=== PATIENT | male | born 1945 | race Caucasian/White ===

== ENCOUNTER → 2023-07-01 09:49 | Outpatient (CLI) | payer MEDICARE, SELFPAY | LOC: RESP 09:53 | PROVIDERS: PCP Registered Nurse; Referring Provider Internal Medicine Cardiovascular Disease; Visit Provider Internal Medicine Cardiovascular Disease | DX: R06.02 Shortness of breath (principal); Z87.891 Personal history of nicotine dependence; J98.8 Other specified respiratory disorders | CPT/HCPCS: 94060; 94726; 94729 ==

== ENCOUNTER → 2023-07-22 08:43 | Outpatient (CLI) | payer MEDICARE, SELFPAY ==
--- NOTE | 2023-07-22 08:44 | DI.NM.S_ITS ---
PROCEDURE: NM MARGARET PERF SPECT R&S PHARM Rest and pharmacological stress myocardial perfusion SPECT with gated imaging and ejection fraction RADIOPHARMACEUTICAL: 12.8 mCi Tc-99m tetrafosmin IV at rest and 26.0 mCi Tc-99m tetrafosmin IV at peak effect of pharmacological stress. [id number] was performed. INDICATIONS: Longstanding persistent atrial fibrillation TECHNIQUE: Radiopharmaceutical was injected at peak stress test, and also at rest. SPECT images were obtained. SPECT myocardial perfusion images were displayed in short axis, horizontal long axis, and vertical long axis views. Gated images were reviewed using RetAPPs software. COMPARISON: None. CARDIAC STRESS: A pharmacologic stress test was performed under the supervision of an attending staff, using an infusion of lexiscan 0.4mg IV X1. Hemodynamic data: There is normal blood pressure and heart rate response to pharmacologic stress. Symptoms: The patient denied anginal chest pain. Aminophylline: none EKG: Resting ECG showed rate controlled atrial fibrillation. No diagnostic changes of ischemia; no ectopy. FINDINGS: Raw data: There is good myocardial uptake of radiotracer. No significant motion artifacts. Left ventricle function: Gated images demonstrate normal left ventricular wall thickening. No segmental wall motion abnormalities. No transient ischemic dilation; TID is 0.91 (normal less than 1.3). Left ventricle resting end diastolic volume is 90 mL. Left ventricle stress ejection fraction is 61%; normal range is above 45%. Myocardial perfusion: There is a mildly to moderately intense fixed apical defect that mostly resolves with prone imaging, suggesting apical thinning artifact but old mild non-transmural can't be excluded. No ischemia. SSS 5, SRS 5. IMPRESSION: Low risk, probably normal pharm nuclear stress test. 1) There is a mildly to moderately intense fixed apical defect that mostly resolves with prone imaging, suggesting apical thinning artifact but old mild non-transmural can't be excluded. No ischemia. SSS 5, SRS 5. 2) Normal left ventricular size, wall motion, and systolic function (EF post stress 64%). 3) No diagnostic ST changes with lexiscan. 4) No angina during the study. 5) No prior nuclear stress test available for comparison. Dictated by: Jose Neely MD on 07/23/2023 at 16:58 Approved by: Jose Neely MD on 07/23/2023 at 17:01
--- NOTE | 2023-07-22 08:45 | DI.ECHO.S_ITS ---
[place] +---------+ [facility] +---------+ : : [address] : : : : [id number] : : : : Phone: [phone]+ Echocardiogram Report + + :Name: LIZZETTE RAO Study Date: 07/22/2023 Height: 69 in : :[facility] ReadingLocation: Weight: 220 lb : : Gender: Male BSA: 2.2 m2 : :: 1945 Age: 78 yrs BP: 157/104 mmHg: :Reason For Study: ATRIAL FIBRILLATION : :Ordering Physician: BIBI, : :BHANU Performed By: Que Boyer : :Referring: BHANU MTZ : + + Interpretation Summary The patient was in atrial fibrillation with heart rates between 72-128 bpm during the exam. The left ventricle is normal in size. Left ventricular ejection fraction is estimated to be 45 +/- 5%. There is mild global hypokinesis of the left ventricle. The right ventricle is normal in size and function.TAPSE: 1.8 cm There is mild to moderate mitral regurgitation. The aortic valve is mildly calcified. There is mildly reduced leaflet mobility. There is no hemodynamically significant valvular aortic stenosis. There is mild tricuspid regurgitation. The right ventricular systolic pressure is estimated to be at least 43 mmHg based on an estimated right atrial pressure of 8 mm Hg. In August 2011, sinus rhythm with preserved LV function without any significant valvular pathology. BP: 157/104 mmHg Procedure: A two-dimensional transthoracic echocardiogram with color flow and Doppler was performed. The study quality was technically adequate. Comparison is made with the echocardiogram of 09/03/2011. The patient was in atrial fibrillation with heart rates between 72-128 bpm during the exam. Left Ventricle: Left ventricular wall thickness is mildly increased. The left ventricle is normal in size. There is no thrombus. Left ventricular ejection fraction is estimated to be 45 +/- 5%. There is mild global hypokinesis of the left ventricle. Diastolic function could not be accurately assessed due to atrial fibrillation. E/E' med: 16.5. Right Ventricle: The right ventricle is normal in size and function. Atria: The left atrium is mildly dilated. Right atrial size is normal. The interatrial septum grossly appears intact with no obvious evidence for an atrial septal defect. Mitral Valve: There is mild mitral annular calcification. There is no mitral valve stenosis. There is mild to moderate mitral regurgitation. Aortic Valve: The aortic valve is trileaflet. The aortic valve is mildly calcified. There is mildly reduced leaflet mobility. There is no hemodynamically significant valvular aortic stenosis. No aortic regurgitation is present. Tricuspid Valve: The tricuspid valve is normal. There is no tricuspid stenosis. There is mild tricuspid regurgitation. The right ventricular systolic pressure is estimated to be at least 43 mmHg based on an estimated right atrial pressure of 8 mm Hg. Pulmonic Valve: The pulmonic valve is not well visualized. There is no pulmonic valvular stenosis. There is no pulmonic valvular regurgitation. Great Vessels: The aortic root is normal size. The dimensions of the ascending aorta are normal. The IVC is of normal diameter and collapses less than 50% with a sniff. This suggests a right atrial pressure of 8 mm Hg. Pericardium/ Pleura There is no pericardial effusion. There is no pleural effusion. MMode/2D Measurements & Calculations LVIDd: 3.9 cm LVOT diam: 2.2 cm LVIDs: 3.0 cm Ao root diam: 3.7 cm FS: 21.8 % asc Aorta Diam: 3.5 cm IVSd: 1.3 cm Ao Arch Diam (Prox Trans): 3.1 cm LVPWd: 1.1 cm LV abbott. diameter/BSA (cm/m^2): 1.8 LV sys. diameter/BSA (cm/m^2): 1.4 LA A2 area: 22.5 cm2 RA long axis: 4.6 cm LA A4 area: 25.7 cm2 RA area: 14.8 cm2 LA length (vol): 6.2 cm RA vol: 40.6 ml LA vol: 79.6 ml RA : 18.9 ml/m2 LA vol index: 37.0 ml/m2 IVC diam: 2.0 cm RVD1 (basal): 3.2 cm RVD2 (mid): 3.0 cm TAPSE: 1.8 cm Doppler Measurements & Calculations Ao V2 max: 141.4 cm/sec LVOT Max Lalo: 74.2 cm/sec Ao V2 mean: 94.7 cm/sec LV V1 max P.2 mmHg Ao max P.0 mmHg LV V1 VTI: 18.8 cm Ao mean P.1 mmHg JAG(I,D): 2.3 cm2 Ao V2 VTI: 30.7 cm JAG(V,D): 1.9 cm2 sev ratio: 0.61 JAG indexed to BSA (cm^2/m^2): 1.1 MV E max lalo: 90.2 cm/sec TR max lalo: 295.2 cm/sec MV A max lalo: 32.9 cm/sec TR max P.9 mmHg MV E/A: 2.7 PA V2 max: 81.2 cm/sec Med Peak E' Lalo: 5.5 cm/sec PA V2 mean: 55.2 cm/sec E/E' med: 16.5 PA mean P.4 mmHg Lat Peak E' Lalo: 7.0 cm/sec PA pr(Accel): 52.7 mmHg E/E' lat: 13.0 E/e' average: 14.7 MV dec time: 0.14 sec SV(LVOT): 69.7 ml Reading Physician:11:26 AM
== END ==
LOC: NUCM 08:43
PROVIDERS: PCP Registered Nurse; Referring Provider Internal Medicine Cardiovascular Disease; Visit Provider Internal Medicine Cardiovascular Disease
DX: I08.1 Rheumatic disorders of both mitral and tricuspid valves (principal); I70.0 Atherosclerosis of aorta; I48.11 Longstanding persistent atrial fibrillation; R06.09 Other forms of dyspnea
CPT/HCPCS: 78452; 93017; 93306; A9502; J2785